=== PATIENT | female | born 1990 | race African-American/Black ===

== ENCOUNTER 2024-12-26 08:28 | Emergency (ER) | payer MEDICAID ==
[~2024-12-26] VITALS: Ht 167.6 cm; Wt 80.0 kg
[2024-12-26 08:31] VITALS: O2SAT 99
[2024-12-26] MEDS: KETOROLAC 15MG/ML VIAL IM ONE (09:07)
[2024-12-26] MEDS: ACETAMINOPHEN 500MG TABLET PO ONE (09:07)
[2024-12-26 11:55] VITALS: BP 119/68; PULSE 61; RESP 16; TEMP 36.9; O2SAT 100
== END 2024-12-26 12:16 | disposition home or self-care (01) ==
LOC: ER 08:28
DX: S89.90XA Unspecified injury of unspecified lower leg, initial encounter (principal); X50.1XXA Overexertion from prolonged static or awkward postures, initial encounter; Y93.89 Activity, other specified; Y92.89 Other specified places as the place of occurrence of the external cause; Y99.8 Other external cause status
CPT/HCPCS: 73562; 29505; 96372; 99283; J1885; Z7610